=== PATIENT | female | born 1975 | race Caucasian/White ===

== ENCOUNTER 2017-02-15 07:58 | Emergency (ER) | payer SELFPAY ==
[~2017-02-15] VITALS: Ht 165.1 cm; Wt 114.2 kg
[~2017-02-15 07:58] MED LIST: CALCIUM 500 MG1 EACH PO; CLARITIN10 MG PO; DAILY VITE1 EAC1 PO; VITAMIN B-6250 MG PO; VITAMIN D-32000 UNI2 PO
[2017-02-15 08:42] LABS: HEMATOCRIT 39.3 % (36.0-46.0); MCH 30.2 PG (29.0-34.0); MCHC 33.6 G/DL (30.0-36.0); MCV 89.9 FL (83-99); MEAN PLAT.VOLUME 10.1 uM^3 (9.5-12.4); PLATELET COUNT 210 K/uL (156-360); RBC DIS.WIDTH-SD 39.3 % (39-53); RED BLOOD COUNT 4.37 M/uL (3.80-5.20)
[2017-02-15 08:53] LABS: D-DIMER ELISA < 150.00 ng/mLDDU (<230)
[2017-02-15 08:58] LABS: CHLORIDE 109 mEq/L (99-109); POTASSIUM 4.7 mEq/L (3.7-5.4); SODIUM 140 mEq/L (136-147)
[2017-02-15 09:00] LABS: GLUCOSE 133 mg/dL (70-99)
[2017-02-15 09:01] LABS: ANION GAP 10 MEQ/L (2-14)
[2017-02-15 09:04] LABS: GFR ESTIMATE (CALCULATED) > 59 mL/min/; TROP-I INTERPRETATION NEGATIVE; TROPONIN-I < 0.01 ng/mL (0.0-0.30)
[2017-02-15 09:05] LABS: UREA NITROGEN (BUN) 17 mg/dL (9-23)
[2017-02-15 09:13] LABS: QUANTITATIVE HCG < 4.0 MIU/ML
[2017-02-15] MEDS ORDERED: NAPROXEN500 MG PO (11:02)
[2017-02-15] MEDS ORDERED: FLEXERIL10 MG PO (11:02)
[2017-02-15 11:13] VITALS: BP 119/78
== END 2017-02-15 11:14 | disposition home or self-care (01) ==
LOC: EME 07:58
PROVIDERS: Physician Assistant
DX: S46.812A Strain of other muscles, fascia and tendons at shoulder and upper arm level, left arm, initial encounter (principal); R07.89 Other chest pain; X50.9XXA Other and unspecified overexertion or strenuous movements or postures, initial encounter; X50.1XXA Overexertion from prolonged static or awkward postures, initial encounter; Y93.E1 Activity, personal bathing and showering
CPT/HCPCS: 71020; 80048; 84484; 84702; 85027; 85379; 93005; 99281; 99284; J1885